=== PATIENT | female | born 1960 | race Caucasian/White ===

== ENCOUNTER 2019-06-06 21:34 | Emergency (ER) | payer MEDICARE, MEDICAID, SELFPAY ==
[2019-06-06 21:36] VITALS: BP 144/82; PULSE 109; RESP 16; TEMP 36.6; O2SAT 98; BMI 24.7
--- NOTE | 2019-06-06 21:52 | ED.VISSUMM ---
- ER Visit Summary Date of Service: 06/06/19 Chief Complaint: Left hip pain History of Present Illness: The patient is a 58 F who presents with left hip pain that began yesterday and has been getting progressively worse. Patient denies any trauma or injury. Patient describes the pain is sharp. Patient states pain is worse with any movement. Patient denies any paresthesias or weakness. Patient denies any back pain. Patient denies any bowel or bladder changes. Patient denies any saddle anesthesia. Patient states pain radiates to her right lower leg and foot. Physical Examination: Vital signs are stable. Patient is afebrile. Patient is in no acute distress. There is tenderness over the left hip. There is no bony crepitance or step-off. There is no edema or ecchymosis. There is no deformity noted. Range of motion was limited in all motions of the left hip secondary to pain. Sensation was intact to light touch bilaterally in the lower extremities. Pedal pulses are equal bilaterally. Test Results: X-rays of the left hip were obtained. There is no acute fracture dislocation. This was interpreted by the radiologist and myself. Emergency Department Course and Treatment: Patient was given an injection of morphine and Zofran here. Patient states she has [place] at home. Patient was instructed to continue that. Patient states she is unable to take any NSAIDs due to kidney disease. Patient was instructed to use ice to her hip. Patient was instructed to follow-up with her primary care physician in 3 to 5 days for further evaluation. Patient and family understood and were agreeable with the plan. All questions were answered. Disposition: Discharge home Impression: Left hip pain This note was generated with [employer] dictation software. It may contain incorrect words, spelling, and punctuation that were not noted in review of the chart prior to signing ED Disposition - Plan for ED Patient: Disposition: Home or Assisted Living Diagnosis: Left hip pain Instructions: Hip Strain Referrals: Care Physician,No Primary [Primary Care Provider] -
--- NOTE | 2019-06-06 22:10 | RAD_ITS ---
STUDY: X-RAY - PELVIS AND LEFT HIP REASON FOR EXAM: Female, 58 years old. Pain TECHNIQUE: 2 views of the pelvis and hip. COMPARISON: None. FINDINGS: There is a non-specific bowel gas pattern. Normal visualized soft tissue structures. Normal bilateral iliac wings, sacroiliac joints and visualized sacrum. Normal bilateral superior and inferior pubic rami. Normal pubic symphysis. Normal bilateral ischial tuberosities. Normal visualized femoral head. Normal acetabulum. Normal hip joint. RAD/HIP, UNI W/ Pelvis 2-3 Views IMPRESSION: Normal x-ray examination of the pelvis and hip. Electronically Signed: John Blair MD at 22:26 EDT Tel , Service support ,
[2019-06-06] MEDS: Morphine 4 MG/ML Syringe IM (22:55)
[2019-06-06] MEDS: Ondansetron 4 MG/2 ML Vial IM (22:55)
[2019-06-06 23:21] VITALS: BP 138/76; PULSE 82; RESP 16; O2SAT 96
== END 2019-06-06 23:25 | disposition home or self-care (01) ==
PROVIDERS: Emergency Provider Emergency Medicine
DX: M25.552 Pain in left hip (principal); M06.9 Rheumatoid arthritis, unspecified; M79.7 Fibromyalgia; M81.0 Age-related osteoporosis without current pathological fracture; Z72.0 Tobacco use
CPT/HCPCS: 73502; 96372; 99282; J7030; A4216; J2405